=== PATIENT | male | born 1970 | race Caucasian/White ===

== ENCOUNTER 2024-08-02 14:30 | Emergency (ER) | payer MEDICAID ==
[~2024-08-02] VITALS: Ht 165.1 cm; Wt 81.8 kg
[2024-08-02] MEDS: ipratropium/albuterol 3ml nebule NEB ONE (15:08)
[2024-08-02 15:11] VITALS: PULSE 90; RESP 20
[2024-08-02 15:12] LABS: BASOPHILS # (AUTO) 0.1 X10'3 (0-0.2); BASOPHILS % (AUTO) 0.8 % (0-1); EOSINOPHILS # (AUTO) 0.3 X10'3 (0-0.9); EOSINOPHILS % (AUTO) 3.3 % (0-6); HEMATOCRIT 44.8 % (42.0-52.0); HEMOGLOBIN 15.5 g/dl (14.0-17.9); LYMPHOCYTES # (AUTO) 2.5 X10'3 (1.1-4.8); LYMPHOCYTES % (AUTO) 27.4 % (21-51); MEAN CORPUSCULAR HGB CONC 34.7 g/dL (33.0-36.5); MEAN CORPUSCULAR VOLUME 89.4 FL (78-98); MEAN PLATELET VOLUME 7.1 FL (7.4-10.4); MONOCYTES # (AUTO) 0.5 X10'3 (0-0.9); MONOCYTES % (AUTO) 5.1 % (2-12); NEUTROPHILS # (AUTO) 5.9 X10'3 (1.8-7.7); NEUTROPHILS % (AUTO) 63.4 % (42-75); PLATELET COUNT 269 X10'3 (140-440); RED BLOOD COUNT 5.01 X10'6 (4.70-6.10); WHITE BLOOD COUNT 9.3 X10'3 (4.5-11.0)
[2024-08-02 15:21] VITALS: PULSE 90; RESP 16; O2SAT 92
[2024-08-02 15:31] LABS: ALBUMIN 3.4 G/DL (3.4-5.0); ANION GAP 5 (8-16); BLOOD UREA NITROGEN 15 MG/DL (7-18); BUN/CREATININE RATIO 17.2 (10.0-20.0); CALCIUM 8.3 MG/DL (8.5-10.1); CHLORIDE 106 MMOL/L (99-107); CREATININE 0.87 MG/DL (0.60-1.10); GLUCOSE 163 MG/DL (70-104); PRO BRAIN NATRIURETIC PEPTIDE 46 PG/ML (0-125); SODIUM 142 MMOL/L (135-145); TOTAL CARBON DIOXIDE 31.3 MMOL/L (24-32); eCRCL 86 ML/MIN; eGFR > 90 ML/MIN
[2024-08-02 15:38] LABS: POTASSIUM 2.8 MMOL/L (3.5-5.1)
[2024-08-02 16:02] VITALS: O2SAT 93
[2024-08-02] MEDS ORDERED: Potassium Cl inj 40 MEQ in normal saline 500ml IV soln 500 ML IV ONE (16:05)
[2024-08-02] MEDS: dexamethasone sod phosphate 10mg/ml inj IV ONE (16:14)
[2024-08-02] MEDS: potassium Cl 40MEQ/1/2NS 520ml 520 ML IV ONE (16:14)
[2024-08-02] MEDS ORDERED: ALBU8HFA INH (17:50)
[2024-08-02] MEDS ORDERED: PRED20TA PO (17:50)
[2024-08-02] MEDS: potassium Cl 20 mEq SR tablet PO STA (20:47)
[2024-08-02 21:57] VITALS: BP 164/80; PULSE 94; RESP 16; TEMP 97.6; O2SAT 99
== END 2024-08-02 22:00 | disposition home or self-care (01) ==
LOC: ER 14:30
DX: T40.411A Poisoning by fentanyl or fentanyl analogs, accidental (unintentional), initial encounter (principal); J45.901 Unspecified asthma with (acute) exacerbation; E87.6 Hypokalemia; I11.9 Hypertensive heart disease without heart failure; Y92.89 Other specified places as the place of occurrence of the external cause
CPT/HCPCS: 36415; 71045; 80048; 83605; 83880; 84484; 85025; 87040; 93005; 94640; 96365; 96366; 96375; 99285; J1100; J3480; 94760; A4615